=== PATIENT | female | born 1990 | race Caucasian/White ===

== ENCOUNTER 2016-12-15 13:01 | Emergency (ER) | payer MEDICAID ==
[~2016-12-15] VITALS: Ht 152.4 cm; Wt 81.0 kg
[~2016-12-15 13:01] MED LIST: AMOX500T2; NEOMYCIN
[2016-12-15] MEDS ORDERED: SODIUM CHLORIDE 0.9% 1,000 ML IV ONE (14:05)
[2016-12-15] MEDS ORDERED: ONDANSETRON HCL 4MG/2ML VIAL IV STA (14:05)
[2016-12-15 14:20] LABS: HEMATOCRIT. 39.9 % (36.0-48.0); HEMOGLOBIN. 13.4 g/dL (12.0-16.0); MEAN CORPUSCULAR HEMOGLOBIN 27.7 pg (28.0-32.0); MEAN CORPUSCULAR VOLUME 82.8 fL (81.0-99.0); MEAN PLATELET VOLUME 8.3 fl (7.4-10.4); PLATELET 290 x1000/uL (130-400); RED BLOOD CELL COUNT 4.82 mill/uL (4.2-5.4)
[2016-12-15 14:26] LABS: CHLORIDE 102 mEq/L (98-107)
[2016-12-15 14:34] LABS: CARBON DIOXIDE 26 mEq/L (21-32)
[2016-12-15 15:28] LABS: HCG SCREEN NEGATIVE
[2016-12-15 15:36] LABS: CLARITY URINE CLEAR (CLEAR); COLOR URINE YELLOW (YELLOW); GLUCOSE URINE NEGATIVE (NEGATIVE); KETONES URINE 2+ (NEGATIVE); LEUKOCYTE ESTERASE URINE NEGATIVE (NEGATIVE); NITRITE URINE NEGATIVE (NEGATIVE); OCCULT BLOOD URINE NEGATIVE (NEGATIVE); PH URINE >=9.0 (4.5-8.0); PROTEIN URINE TRACE (NEGATIVE); SPECIFIC GRAVITY URINE 1.021 (1.005-1.030); UROBILINOGEN URINE 0.2 E.U./dL (0.2-1.0)
[2016-12-15 15:48] LABS: *AMPHETAMINES SCREEN URINE NEGATIVE (NEGATIVE); *BARBITURATES SCREEN URINE NEGATIVE (NEGATIVE); *BENZODIAZEPINES SCREEN URINE NEGATIVE (NEGATIVE); *COCAINE SCREEN URINE NEGATIVE (NEGATIVE); CANNABINOID URINE SCREEN NEGATIVE (NEGATIVE); METHADONE URINE SCREEN NEGATIVE (NEGATIVE); OPIATES URINE SCREEN NEGATIVE (NEGATIVE); PHENCYCLIDINE URINE SCREEN NEGATIVE (NEGATIVE)
[2016-12-15] MEDS ORDERED: MORPHINE SULFATE 2 MG/ML CPJ (NOT FOR IM USE) IV ONE (16:00)
[2016-12-15] MEDS ORDERED: MORPHINE SULFATE 4 MG/ML CPJ (NOT FOR IM USE) IV NR (16:30)
[2016-12-15 16:31] LABS: PLATELET ESTIMATE NORMAL
[2016-12-15] MEDS ORDERED: MORPHINE SULFATE 4 MG/ML CPJ (NOT FOR IM USE) IV ONE (17:30)
[2016-12-15 19:45] VITALS: BP 138/77
== END 2016-12-15 19:59 | disposition home or self-care (01) ==
LOC: ER 14:25
DX: R10.84 Generalized abdominal pain (principal); J45.909 Unspecified asthma, uncomplicated; R51 Headache
CPT/HCPCS: 36415; 70450; 74176; 80053; 80305; 81001; 83690; 84703; 85025; 96361; 96374; 96375; 96376; 99285; C1893; J2270; J2405; J7030; Z7610

== ENCOUNTER 2017-06-30 11:45 | Emergency (ER) | payer MEDICAID, OTHER ==
[~2017-06-30] VITALS: Ht 160 cm; Wt 82.0 kg
[2017-06-30] MEDS ORDERED: KETOROLAC 30MG/ML VIAL IM ONE (14:00)
[2017-06-30 14:14] LABS: CHLORIDE 104 mEq/L (98-107)
[2017-06-30 14:23] LABS: CREATINE KINASE 73 IU/L (26-192)
[2017-06-30 14:45] LABS: HCG SCREEN NEGATIVE
[2017-06-30 15:47] VITALS: BP 140/89
== END 2017-06-30 15:49 | disposition home or self-care (01) ==
LOC: ER 12:47
DX: M79.675 Pain in left toe(s) (principal); M79.674 Pain in right toe(s); M25.562 Pain in left knee; M25.561 Pain in right knee; M79.89 Other specified soft tissue disorders; J45.909 Unspecified asthma, uncomplicated; F41.9 Anxiety disorder, unspecified; Z98.890 Other specified postprocedural states
CPT/HCPCS: 36415; 80048; 82550; 83735; 84703; 93970; 96372; 99285; J1885

== ENCOUNTER 2018-01-21 08:47 | Emergency (ER) | payer OTHER ==
[~2018-01-21] VITALS: Ht 160 cm; Wt 86.3 kg
[2018-01-21] MEDS ORDERED: ALBU90AE IH (09:08)
[2018-01-21] MEDS ORDERED: NAPR-681 MT (09:08)
[2018-01-21] MEDS ORDERED: LORA10TA7 PO (09:08)
[2018-01-21] MEDS ORDERED: PREDNISONE 20MG TABLET PO STA (10:07)
[2018-01-21] MEDS ORDERED: ALBUTEROL (0.083%) 2.5MG/3ML NEB HHN STA (10:07)
[2018-01-21] MEDS ORDERED: ALBUTEROL (0.5%) 2.5MG/0.5ML NEB HHN ONE (10:33)
[2018-01-21 11:27] VITALS: BP 129/79
== END 2018-01-21 11:30 | disposition home or self-care (01) ==
LOC: ER 09:35
DX: J45.901 Unspecified asthma with (acute) exacerbation (principal); R04.0 Epistaxis; Z98.890 Other specified postprocedural states; R94.31 Abnormal electrocardiogram [ECG] [EKG]
CPT/HCPCS: 71045; 81025; 93005; 94640; 99283; J7512; J7611

== ENCOUNTER 2018-01-22 19:19 | Emergency (ER) | payer OTHER ==
[~2018-01-22] VITALS: Ht 160 cm; Wt 87.0 kg
[~2018-01-22 19:19] MED LIST changes: +ALBU90AE IH; -AMOX500T2; +LORA10TA7 PO; +NAPR-681 MT; -NEOMYCIN
[2018-01-23 03:48] LABS: BASOPHILS % 0.6 % (0.0-2.0); CHLORIDE 108 mEq/L (98-107); EOSINOPHILS % 0.6 % (0.0-5.0); HEMATOCRIT. 40.5 % (36.0-48.0); HEMOGLOBIN. 12.9 g/dL (12.0-16.0); LYMPHOCYTES % 28.4 % (20.0-50.0); MEAN CORPUSCULAR HEMOGLOBIN 27.4 pg (28.0-32.0); MEAN CORPUSCULAR VOLUME 85.7 fL (81.0-99.0); MEAN PLATELET VOLUME 8.3 fl (7.4-10.4); MONOCYTES % 7.2 % (2.0-8.0); NEUTROPHILS % 63.2 % (40.0-76.0); PLATELET 312 x1000/uL (130-400); RED BLOOD CELL COUNT 4.73 mill/uL (4.2-5.4); RED CELL DISTRIBUTION WIDTH 15.5 % (11.6-14.6)
[2018-01-23 03:52] LABS: INR 1.1; PARTIAL THROMBOPLASTIN TIME 28.9 sec (23.4-31.0); PROTHROMBIN TIME 10.7 sec (9.1-11.1)
[2018-01-23] MEDS ORDERED: ACETAMINOPHEN 325MG TABLET PO ONE (04:00)
[2018-01-23 04:25] VITALS: BP 136/86
== END 2018-01-23 04:45 | disposition home or self-care (01) ==
LOC: ER 19:19
DX: R04.0 Epistaxis (principal); R51 Headache; J45.909 Unspecified asthma, uncomplicated; Z98.890 Other specified postprocedural states; Z79.899 Other long term (current) drug therapy
CPT/HCPCS: 36415; 80048; 99283

== ENCOUNTER 2018-07-01 15:14 | Emergency (ER) | payer MEDICAID, OTHER ==
[~2018-07-01] VITALS: Ht 152.4 cm; Wt 86.0 kg
[2018-07-01] MEDS ORDERED: SODIUM CHLORIDE 0.9% 1,000 ML IV ONE (17:37)
[2018-07-01] MEDS ORDERED: DIPHENHYDRAMINE 50MG/ML VIAL IV ONE (17:45)
[2018-07-01] MEDS ORDERED: METHYLPREDNISOLONE SOD SUCC 125 MG/2 ML VIAL IV ONE (17:45)
[2018-07-01 19:15] VITALS: BP 142/95
== END 2018-07-01 19:16 | disposition home or self-care (01) ==
LOC: ER 15:14
DX: T78.40XA Allergy, unspecified, initial encounter (principal); J45.909 Unspecified asthma, uncomplicated; Z98.890 Other specified postprocedural states; X58.XXXA Exposure to other specified factors, initial encounter
CPT/HCPCS: 96374; 96375; 99283; J1200; J2930; J7030

== ENCOUNTER 2019-12-29 15:07 | Emergency (ER) | payer MEDICAID, MEDICARE ==
[~2019-12-29] VITALS: Ht 152.4 cm; Wt 91.0 kg
[2019-12-29] MEDS ORDERED: IBUPROFEN 600MG TABLET PO ONE (16:45)
[2019-12-29 16:51] VITALS: BP 163/88
== END 2019-12-29 17:39 | disposition home or self-care (01) ==
LOC: ER 15:07
DX: M54.5 Low back pain (principal); J45.909 Unspecified asthma, uncomplicated; Z98.890 Other specified postprocedural states; V43.52XA Car driver injured in collision with other type car in traffic accident, initial encounter; Y93.89 Activity, other specified; Y92.488 Other paved roadways as the place of occurrence of the external cause
CPT/HCPCS: 99282

== ENCOUNTER 2021-08-27 03:27 | Emergency (ER) | payer MEDICARE ==
[~2021-08-27] VITALS: Ht 154.9 cm; Wt 91.0 kg
[2021-08-27 04:20] VITALS: BP 138/74
[2021-08-27] MEDS ORDERED: OFLO5DRO4 EACH EAR (07:29)
[2021-08-27] MEDS ORDERED: IBUPROFEN 400MG TABLET PO ONE (08:00)
[2021-08-27] MEDS ORDERED: ACETAMINOPHEN 325MG TABLET PO ONE (08:00)
== END 2021-08-27 07:57 | disposition home or self-care (01) ==
LOC: ER 03:27
DX: H60.93 Unspecified otitis externa, bilateral (principal); J45.909 Unspecified asthma, uncomplicated; Z98.890 Other specified postprocedural states
CPT/HCPCS: 81025; 99283